=== PATIENT | male | born 1945 | race Caucasian/White ===

== ENCOUNTER → 2017-10-03 | Outpatient (CLI) | payer MEDICARE ==
[~2017-10-03] MED LIST: ASPI81CH PO; ATOR40TA PO; FINA5 PO; MECL12.5 PO; RANI150 PO; TAMS.4ER PO
[2017-10-03 18:14] LABS: BASOPHILS ABSOLUTE AUTO 0.02 K/mm3 (0.00-0.23); BASOPHILS PERCENT AUTO 0 % (0-2); EOSINOPHILS ABSOLUTE AUTO 0.46 K/mm3 (0.00-0.68); EOSINOPHILS PERCENT AUTO 5 % (0-6); Hematocrit 44.2 % (37.0-53.0); Hemoglobin 15.2 g/dL (13.5-17.5); IMMATURE GRAN ABSOLUTE AUTO 0.07 K/mm3 (0.00-0.10); IMMATURE GRAN PERCENT AUTO 1 % (0-1); LYMPHOCYTES ABSOLUTE AUTO 2.64 K/mm3 (0.84-5.20); LYMPHOCYTES PERCENT AUTO 29 % (21-46); MONOCYTES ABSOLUTE AUTO 0.83 K/mm3 (0.16-1.47); MONOCYTES PERCENT AUTO 9 % (4-13); Mean Corpuscular HGB 32.1 pg (26.0-34.0); Mean Corpuscular HGB Conc 34.4 g/dL (31.5-36.5); Mean Corpuscular Volume 93 fL (80-100); Mean Platelet Volume 10.4 fL (9.1-12.4); NEUTROPHILS ABSOLUTE AUTO 5.19 K/mm3 (1.96-9.15); NEUTROPHILS PERCENT AUTO 56 % (41-73); Platelet Count 282 K/mm3 (150-400); RDW Coefficient Variation 13.2 % (11.7-14.2); RDW Standard Deviation 45.6 fL (35.1-46.3); Red Blood Cell Count 4.74 M/mm3 (4.30-5.90); White Blood Cell Count 9.21 K/mm3 (4.00-11.30)
[2017-10-03 19:08] LABS: Very Low Density Lipoprot Chol 28 mg/dL (6-32)
[2017-10-03 19:09] LABS: Alanine Aminotransfer (ALT/SGP 28 U/L (12-78); Albumin, Blood 4.1 g/dL (3.4-5.0); Albumin/Globulin Ratio 1.1 (0.8-1.8); Alk Phos 127 U/L (50-136); Anion Gap 5 mmol/L (6-16); Aspartate Aminotrans (AST/SGOT 20 U/L (12-37); Bilirubin, Total 0.7 mg/dL (0.1-1.0); Blood Urea Nitrogen 12 mg/dL (8-24); Bun/Creatinine Ratio 14.3 (12.0-20.0); CHOL/HDL RATIO 3.7; CO2, Blood 31 mmol/L (21-32); Calcium, Blood 9.3 mg/dL (8.5-10.1); Chloride, Blood 105 mmol/L (98-108); Cholesterol 146 mg/dL (50-200); Creatinine, Blood 0.84 mg/dL (0.60-1.20); Globulin, Blood 3.8 g/dL (2.2-4.0); Glomerular Filtration Rate >60 (60-); Glucose, Blood 91 mg/dL (70-99); HDL Cholesterol 39 mg/dL (>39); Low Density Lipoprotein Chol 79 mg/dL (0-110); Potassium, Blood 3.9 mmol/L (3.5-5.5); Sodium, Blood 141 mmol/L (136-145); Total Protein, Blood 7.9 g/dL (6.4-8.2); Triglycerides 141 mg/dL (30-160)
== END | disposition home or self-care (01) ==
LOC: LAB SHORT 10:57 → LAB 10:57
PROVIDERS: Nurse Practitioner Adult Health
DX: E78.5 Hyperlipidemia, unspecified (principal); N40.0 Benign prostatic hyperplasia without lower urinary tract symptoms; F34.1 Dysthymic disorder
CPT/HCPCS: 80053; 80061; 85025

== ENCOUNTER → 2018-04-25 | Outpatient (CLI) | payer MEDICARE ==
[2018-04-25 18:10] LABS: BASOPHILS ABSOLUTE AUTO 0.04 K/mm3 (0.00-0.23); BASOPHILS PERCENT AUTO 0 % (0-2); EOSINOPHILS ABSOLUTE AUTO 0.43 K/mm3 (0.00-0.68); EOSINOPHILS PERCENT AUTO 5 % (0-6); Hematocrit 45.3 % (37.0-53.0); Hemoglobin 15.1 g/dL (13.5-17.5); IMMATURE GRAN ABSOLUTE AUTO 0.07 K/mm3 (0.00-0.10); IMMATURE GRAN PERCENT AUTO 1 % (0-1); LYMPHOCYTES ABSOLUTE AUTO 2.49 K/mm3 (0.84-5.20); LYMPHOCYTES PERCENT AUTO 27 % (21-46); MONOCYTES ABSOLUTE AUTO 0.87 K/mm3 (0.16-1.47); MONOCYTES PERCENT AUTO 9 % (4-13); Mean Corpuscular HGB 31.5 pg (26.0-34.0); Mean Corpuscular HGB Conc 33.3 g/dL (31.5-36.5); Mean Corpuscular Volume 95 fL (80-100); Mean Platelet Volume 11.4 fL (9.1-12.4); NEUTROPHILS ABSOLUTE AUTO 5.39 K/mm3 (1.96-9.15); NEUTROPHILS PERCENT AUTO 58 % (41-73); Platelet Count 220 K/mm3 (150-400); RDW Coefficient Variation 13.7 % (11.7-14.2); RDW Standard Deviation 47.5 fL (35.1-46.3); Red Blood Cell Count 4.79 M/mm3 (4.30-5.90); White Blood Cell Count 9.29 K/mm3 (4.00-11.30)
[2018-04-25 18:49] LABS: C-REACTIVE PROTEIN, EXT RANGE <0.290 mg/dL (0.000-0.300); Very Low Density Lipoprot Chol 41 mg/dL (6-32)
[2018-04-25 18:54] LABS: Alanine Aminotransfer (ALT/SGP 28 U/L (12-78); Albumin, Blood 3.9 g/dL (3.4-5.0); Alk Phos 121 U/L (50-136); Anion Gap 4 mmol/L (6-16); Aspartate Aminotrans (AST/SGOT 21 U/L (12-37); Bilirubin, Total 0.5 mg/dL (0.1-1.0); Blood Urea Nitrogen 16 mg/dL (8-24); Bun/Creatinine Ratio 18.1 (12.0-20.0); CHOL/HDL RATIO 4.4; CO2, Blood 31 mmol/L (21-32); Calcium, Blood 9.7 mg/dL (8.5-10.1); Chloride, Blood 104 mmol/L (98-108); Cholesterol 161 mg/dL (50-200); Creatinine, Blood 0.89 mg/dL (0.60-1.20); Globulin, Blood 3.9 g/dL (2.2-4.0); Glomerular Filtration Rate >60 (60-); HDL Cholesterol 37 mg/dL (>39); LDL/HDL RATIO 2.2; Low Density Lipoprotein Chol 83 mg/dL (0-110); Potassium, Blood 3.7 mmol/L (3.5-5.5); Sodium, Blood 139 mmol/L (136-145); Total Protein, Blood 7.8 g/dL (6.4-8.2); Triglycerides 207 mg/dL (30-160)
[2018-04-25 19:35] LABS: Glucose, Blood 97 mg/dL (70-99)
[2018-04-26 12:32] LABS: Rheumatoid Factor, Serum Negative (Negative)
[2018-04-27 10:55] LABS: Antinuclear Antibody Screen Negative Cytoplasmic (Negative)
== END ==
LOC: LAB 17:41 → LAB SHORT 17:41
PROVIDERS: Nurse Practitioner Family
DX: E78.5 Hyperlipidemia, unspecified (principal); M19.90 Unspecified osteoarthritis, unspecified site
CPT/HCPCS: 80053; 80061; 85025; 86038; 86140; 86430

== ENCOUNTER 2018-08-16 08:25 | Day surgery (SDC) | payer MEDICARE, OTHER ==
[~2018-08-16] VITALS: Ht 180.3 cm; Wt 84.0 kg
--- NOTE | 2018-08-16 09:08 | NUR ---
CALL LIGHT IN REACH.
[2018-08-16] MEDS ORDERED: Nitroglycerin1 EAC3 TD (09:22)
--- NOTE | 2018-08-16 11:47 | NUR ---
PT RETURNED BACK TO RECOVERY ROOM IN BED WITH RIGHT RADIAL TR BAND IN PLACE WITH WRIST BOARD. RIGHT RADIAL SITE SOFT NON-TENDER WITH NO HEMATOMA AND NO PULSATILE BLEEDING. PT DENIES CHEST PAIN OR ANY PAIN. CALL LIGHT IN REACH.
--- NOTE | 2018-08-16 12:17 | NUR ---
DR DYER IN ROOM TO SEE PT AND PT'S .
--- NOTE | 2018-08-16 13:53 | NUR ---
DISCHARGE INSTRUCTIONS REVIEWED AND ALL QUESTIONS ANSWERED.
--- NOTE | 2018-08-16 14:16 | NUR ---
TR BAND REMOVED FROM RIGHT WRIST, RED CLOTH DOT DRESSING APPLIED. ARM BOARD ON FOR SUPPORT. IV REMOVED FROM LEFT WRIST WITH CATH INTACT, PRESSURE DRESSING APPLIED. BOTH SITES APPEAR TO BE WNL, SOFT NON TENDER, NO ACTIVE EXTERNAL BLEEDING. PT DENIES NEED FOR W/C OUT TO PRIVATE VEHICLE. AMBULATES WITH STEADY GAIT. IS WITH PT TO DRIVE HIM HOME. NADN AT TIME OF DISPO. VSS.
== END 2018-08-16 14:15 | disposition home or self-care (01) ==
LOC: MHTC 08:25
DX: I25.119 Atherosclerotic heart disease of native coronary artery with unspecified angina pectoris (principal); E78.5 Hyperlipidemia, unspecified; K21.9 Gastro-esophageal reflux disease without esophagitis; F32.9 Major depressive disorder, single episode, unspecified; Z87.891 Personal history of nicotine dependence
CPT/HCPCS: 93454; 99152; 99153; C1769; C1894; J1644; J2250; J3010; J7030; Q9967

== ENCOUNTER → 2018-10-15 | Outpatient (CLI) | payer MEDICARE, OTHER ==
[~2018-10-15] MED LIST changes: +Nitroglycerin1 EAC3 TD
[2018-10-15 17:29] LABS: BASOPHILS ABSOLUTE AUTO 0.02 K/mm3 (0.00-0.23); BASOPHILS PERCENT AUTO 0 % (0-2); EOSINOPHILS ABSOLUTE AUTO 0.46 K/mm3 (0.00-0.68); EOSINOPHILS PERCENT AUTO 5 % (0-6); Hematocrit 42.1 % (37.0-53.0); IMMATURE GRAN ABSOLUTE AUTO 0.05 K/mm3 (0.00-0.10); IMMATURE GRAN PERCENT AUTO 1 % (0-1); LYMPHOCYTES ABSOLUTE AUTO 2.07 K/mm3 (0.84-5.20); LYMPHOCYTES PERCENT AUTO 23 % (21-46); MONOCYTES ABSOLUTE AUTO 0.73 K/mm3 (0.16-1.47); MONOCYTES PERCENT AUTO 8 % (4-13); Mean Corpuscular HGB 31.9 pg (26.0-34.0); Mean Corpuscular HGB Conc 33.3 g/dL (31.5-36.5); Mean Corpuscular Volume 96 fL (80-100); Mean Platelet Volume 10.5 fL (9.1-12.4); NEUTROPHILS PERCENT AUTO 63 % (41-73); Platelet Count 272 K/mm3 (150-400); RDW Coefficient Variation 13.3 % (11.7-14.2); RDW Standard Deviation 47.8 fL (35.1-46.3); Red Blood Cell Count 4.39 M/mm3 (4.30-5.90); White Blood Cell Count 8.93 K/mm3 (4.00-11.30)
[2018-10-15 17:40] LABS: Alanine Aminotransfer (ALT/SGP 30 U/L (12-78); Albumin, Blood 3.6 g/dL (3.4-5.0); Alk Phos 108 U/L (50-136); Anion Gap 4 mmol/L (6-16); Aspartate Aminotrans (AST/SGOT 21 U/L (12-37); Bilirubin, Total 0.8 mg/dL (0.1-1.0); Blood Urea Nitrogen 10 mg/dL (8-24); Bun/Creatinine Ratio 12.6 (12.0-20.0); CHOL/HDL RATIO 3.4; CO2, Blood 31 mmol/L (21-32); Calcium, Blood 8.5 mg/dL (8.5-10.1); Chloride, Blood 105 mmol/L (98-108); Cholesterol 119 mg/dL (50-200); Creatinine, Blood 0.79 mg/dL (0.60-1.20); Globulin, Blood 3.5 g/dL (2.2-4.0); Glomerular Filtration Rate >60 (60-); Glucose, Blood 91 mg/dL (70-99); HDL Cholesterol 35 mg/dL (>39); LDL/HDL RATIO 1.8; Low Density Lipoprotein Chol 63 mg/dL (0-110); Potassium, Blood 3.6 mmol/L (3.5-5.5); Sodium, Blood 140 mmol/L (136-145); Total Protein, Blood 7.1 g/dL (6.4-8.2); Triglycerides 106 mg/dL (30-160); Very Low Density Lipoprot Chol 21 mg/dL (6-32)
== END | disposition home or self-care (01) ==
LOC: LAB 08:00 → LAB SHORT 08:00
PROVIDERS: Nurse Practitioner Family
DX: I25.10 Atherosclerotic heart disease of native coronary artery without angina pectoris (principal)
CPT/HCPCS: 80053; 80061; 85025

== ENCOUNTER 2019-07-31 20:00 | Observation (INO) | payer MEDICARE ==
[~2019-07-31] VITALS: Ht 182.9 cm; Wt 79.1 kg
[2019-07-31] MEDS ORDERED: ISOMON20 (20:17)
[2019-07-31] MEDS ORDERED: NITR.4SL SL (20:17)
[2019-07-31] MEDS ORDERED: METOPROLOL SUCC25 MG PO (20:18)
[2019-07-31] MEDS ORDERED: ISOSORBIDE MONO30 MG PO (20:18)
[2019-07-31 20:36] LABS: BASOPHILS ABSOLUTE AUTO 0.04 K/mm3 (0.00-0.23); BASOPHILS PERCENT AUTO 0 % (0-2); EOSINOPHILS ABSOLUTE AUTO 0.18 K/mm3 (0.00-0.68); EOSINOPHILS PERCENT AUTO 2 % (0-6); Hematocrit 43.9 % (37.0-53.0); IMMATURE GRAN ABSOLUTE AUTO 0.13 K/mm3 (0.00-0.10); IMMATURE GRAN PERCENT AUTO 1 % (0-1); LYMPHOCYTES ABSOLUTE AUTO 1.13 K/mm3 (0.84-5.20); LYMPHOCYTES PERCENT AUTO 10 % (21-46); MONOCYTES ABSOLUTE AUTO 0.64 K/mm3 (0.16-1.47); MONOCYTES PERCENT AUTO 6 % (4-13); Mean Corpuscular HGB 32.3 pg (26.0-34.0); Mean Corpuscular HGB Conc 34.2 g/dL (31.5-36.5); Mean Corpuscular Volume 95 fL (80-100); Mean Platelet Volume 9.7 fL (9.1-12.4); NEUTROPHILS ABSOLUTE AUTO 9.24 K/mm3 (1.96-9.15); NEUTROPHILS PERCENT AUTO 81 % (41-73); Platelet Count 313 K/mm3 (150-400); RDW Coefficient Variation 13.1 % (11.7-14.2); RDW Standard Deviation 45.6 fL (35.1-46.3); Red Blood Cell Count 4.64 M/mm3 (4.30-5.90); White Blood Cell Count 11.36 K/mm3 (4.00-11.30)
[2019-07-31 20:51] LABS: Alanine Aminotransfer (ALT/SGP 29 U/L (12-78); Albumin, Blood 3.8 g/dL (3.4-5.0); Albumin/Globulin Ratio 0.9 (0.8-1.8); Alk Phos 118 U/L (50-136); Anion Gap 3 mmol/L (6-16); Aspartate Aminotrans (AST/SGOT 23 U/L (12-37); Bilirubin, Total 0.5 mg/dL (0.1-1.0); Blood Urea Nitrogen 17 mg/dL (8-24); Bun/Creatinine Ratio 19.1 (12.0-20.0); CO2, Blood 30 mmol/L (21-32); Calcium, Blood 8.8 mg/dL (8.5-10.1); Chloride, Blood 107 mmol/L (98-108); Creatinine, Blood 0.89 mg/dL (0.60-1.20); Globulin, Blood 4.2 g/dL (2.2-4.0); Glomerular Filtration Rate >60 (60-); Glucose, Blood 112 mg/dL (70-99); Potassium, Blood 3.8 mmol/L (3.5-5.5); Sodium, Blood 140 mmol/L (136-145); Troponin I <0.015 ng/mL (0.000-0.040)
[2019-07-31 23:19] LABS: Source, Urine Clean Catch
[2019-07-31 23:27] LABS: Bilirubin, Urine Neg (Neg); Blood, Urine Neg (Neg); Glucose Qualitative, Urine Neg (Neg); Ketones, Urine 1+ (Neg); Leukocyte Esterase, Urine 1+ (Neg); Nitrite, Urine Neg (Neg); Protein, Urine 2+ (Neg); Urobilinogen, Urine 3+ (Normal)
[2019-07-31 23:33] LABS: Amorphous Light (0-Heavy); Appearance, Urine Hazy (Clear); Bacteria Rare /hpf; Color, Urine Yellow (P-Yellow); Mucus Mod (0-Heavy); Squamous Epithelial Cells Not Seen /hpf (Few)
--- NOTE | 2019-08-01 06:01 | NUR ---
SHIFT SUMMARY PT WAS A NEW ADMIT DURING THE NIGHT, ARRIVING ON THE FLOOR AT 0150. HE WAS ADMITTED FOR CHRONIC CHEST PAIN EXACERBATION AND CAD. PT IS A&O X 4. HE DID REPORT CHEST PAIN AT A 2/10 ON ADMISSION, WHICH PER THE PT IS HIS NORMAL. NO COMPLAINTS OF NAUSEA OR SOB. PT RECEIVED NS @ 75 ML/HR. VITAL SIGNS STABLE. TELE MONITOR SHOWED NSR IN THE 70S. NO OTHER ACUTE CHANGES IN PT CONDITION NOTED SINCE ADMISSION. WILL CONTINUE TO MONITOR AND TREAT PER EMAR UNTIL HAND OFF TO DAY SHIFT RN.
[2019-08-01 07:35] LABS: Hematocrit 42.6 % (37.0-53.0); Hemoglobin 14.5 g/dL (13.5-17.5); Mean Corpuscular HGB 32.2 pg (26.0-34.0); Mean Corpuscular Volume 95 fL (80-100); Mean Platelet Volume 9.4 fL (9.1-12.4); Platelet Count 283 K/mm3 (150-400); RDW Coefficient Variation 13.1 % (11.7-14.2); RDW Standard Deviation 45.3 fL (35.1-46.3); White Blood Cell Count 11.36 K/mm3 (4.00-11.30)
[2019-08-01 07:53] LABS: Alanine Aminotransfer (ALT/SGP 25 U/L (12-78); Albumin, Blood 3.3 g/dL (3.4-5.0); Albumin/Globulin Ratio 0.8 (0.8-1.8); Alk Phos 103 U/L (50-136); Anion Gap 5 mmol/L (6-16); Aspartate Aminotrans (AST/SGOT 19 U/L (12-37); Bilirubin, Total 0.6 mg/dL (0.1-1.0); Blood Urea Nitrogen 16 mg/dL (8-24); Bun/Creatinine Ratio 20.7 (12.0-20.0); CO2, Blood 26 mmol/L (21-32); CPK Creatine Kinase 74 U/L (39-308); Calcium, Blood 8.5 mg/dL (8.5-10.1); Chloride, Blood 112 mmol/L (98-108); Creatinine, Blood 0.77 mg/dL (0.60-1.20); Globulin, Blood 3.9 g/dL (2.2-4.0); Glomerular Filtration Rate >60 (60-); Glucose, Blood 106 mg/dL (70-99); Potassium, Blood 3.7 mmol/L (3.5-5.5); Sodium, Blood 143 mmol/L (136-145); Total Protein, Blood 7.2 g/dL (6.4-8.2); Troponin I <0.015 ng/mL (0.000-0.040)
[2019-08-01] MEDS ORDERED: FAMO20 PO (09:49)
--- NOTE | 2019-08-01 11:19 | NUR ---
Echocardiogram completed.
[2019-08-01 16:01] LABS: CPK Creatine Kinase 101 U/L (39-308); Troponin I <0.015 ng/mL (0.000-0.040)
--- NOTE | 2019-08-01 17:16 | NUR ---
Shift Summary A/Ox4, pleasant and cooperative. Denies any unusual pain besides what patient normally has (05/13). Up in room and to bathroom independently. Changed diet order to soft d/t patient's request as he does not have his dentures here. Tele: NSR c occassional PAC's. Serial troponins completed. No acute changes. Will continue to monitor.
[2019-08-02 05:22] LABS: CHOL/HDL RATIO 3.9; Cholesterol 116 mg/dL (50-200); HDL Cholesterol 30 mg/dL (>39); LDL/HDL RATIO 2.2; Low Density Lipoprotein Chol 67 mg/dL (0-110); Triglycerides 97 mg/dL (30-160); Very Low Density Lipoprot Chol 19 mg/dL (6-32)
--- NOTE | 2019-08-02 05:42 | NUR ---
SHIFT SUMMARY PT IS A 73 Y/O MALE, ADMITTED FOR CHEST PAIN AND CAD. PT HAS CHRONIC CHEST PAIN AT A 2/10, AND STATED THAT HIS PAIN WAS AT HIS NORMAL LEVELS. NO ACUTE PAIN, NAUSEA OR SOB. VITAL SIGNS STABLE. TELE SHOWED NSR C PACS IN THE 60S. PT HAS BEEN NPO SINCE MIDNIGHT IN PREP FOR SECOND HALF OF STRESS TEST TODAY. NO ACUTE CHANGES IN PT CONDITION NOTED. WILL CONTINUE TO MONITOR AND TREAT PER EMAR UNTIL HAND OFF TO DAY SHIFT RN.
--- NOTE | 2019-08-02 10:52 | NUR ---
RECIEVED A CALL FROM [facility] INSTRUCTED TO FEED THE PT BREAKFAST AND MAKE NPO AFTER. COFFEE REMOVED FROM TRAY NO CHOCOLATE ON IT. SPOKE ABOUT PT MORNING MEDICATIONS THEY REQUESTED WE HOLD THE DOSE OF ISOSORBIDE MONONITRATE UNTIL AFTER THE STRESS TEST WITH THE CHEMICAL TEST THIS CAN EFFECT THE RESULTS.
[2019-08-02] MEDS ORDERED: ACET325 PO (17:00)
[2019-08-02] MEDS ORDERED: PANT40 PO (17:01)
--- NOTE | 2019-08-02 18:45 | NUR ---
DISCHARGE NOTE- PT WAS GIVEN VERBAL AND WRITTEN DISCHARGE INSTRUCTIONS AND ACKNOWLEDGED UNDERSTANDING OF THEM. PT IV AND TELE WERE DC'D PRIOR TO DISCHARGE. PT DECLINED WC AND WAS ESCORTED OUT ON FOOT. MEDS FAXED TO [facility] PER PT REQUEST. PT SPOUSE PICKED HIM UP AT THE ED ENTRANCE. NO FURTHER QUESTIONS AT THE TIME OF DISCHARGE.
== END 2019-08-02 17:37 | disposition home or self-care (01) ==
LOC: ER 20:00 → MEDS 20:01
PROVIDERS: Emergency Medicine; Internal Medicine Cardiovascular Disease; ADMIT Internal Medicine
DX: R07.89 Other chest pain (principal); I25.118 Atherosclerotic heart disease of native coronary artery with other forms of angina pectoris; F12.10 Cannabis abuse, uncomplicated; E86.0 Dehydration; I10 Essential (primary) hypertension; E78.5 Hyperlipidemia, unspecified; K21.9 Gastro-esophageal reflux disease without esophagitis; N40.0 Benign prostatic hyperplasia without lower urinary tract symptoms; F32.9 Major depressive disorder, single episode, unspecified; Z79.82 Long term (current) use of aspirin; Z79.899 Other long term (current) drug therapy; Z87.891 Personal history of nicotine dependence
CPT/HCPCS: 36415; 71045; 78452; 80053; 80061; 81001; 82550; 83880; 84484; 85025; 85027; 87086; 93005; 93010; 93017; 93306; 96361; 96372; 96374; 96375; 99285-25; A9270-GY; A9500; C9113; G0378; J1650; J2405; J2785; J7030